=== PATIENT | female | born 1980 | race Hispanic/Latino ===

== ENCOUNTER 2019-01-09 06:24 | Day surgery (SDC) | payer OTHER ==
[2019-01-05 12:07] LABS: Urine Appearance CLEAR; Urine Bilirubin NEGATIVE (NEG); Urine Blood NEGATIVE (NEG); Urine Color YELLOW; Urine Glucose NEGATIVE (NEG); Urine Protein NEGATIVE (NEG); Urine Specific Gravity 1.015 (1.005-1.030); Urine Urobilinogen 0.2 mg/dL (0.2-1.0); Urine pH 6.5 (5.0-7.0)
[2019-01-05 12:10] LABS: Absolute Lymphocytes (CBC) 1.7 K/uL (0.7-4.9); Basophils % 0.8 % (0-1.3); Hematocrit 35.4 % (36.0-45.0); Lymphocytes % 34.8 % (15.3-44.8); MPV 9.6 fL (7.6-11.3); RBC Red Blood Cell Count 4.29 M/uL (3.86-4.86)
[2019-01-05 12:10] LABS: Urine Microscopic Reflex NO UMIC
[2019-01-09 06:42] LABS: Specific Gravity >= 1.030 (1.005-1.030)
[2019-01-09] MEDS ORDERED: NA CHLORIDE 0.9% 1,000 ML ONE (07:11)
[2019-01-09] MEDS ORDERED: PROPOFOL 200 MG/20 ML VIAL IV ONE (07:19)
[2019-01-09] MEDS ORDERED: ONDANSETRON 4 MG/2 ML VIAL ONE (07:19)
[2019-01-09] MEDS ORDERED: MIDAZOLAM HCL 2 MG/2 ML INJ ONE (07:19)
[2019-01-09] MEDS ORDERED: FENTANYL CITR 250 MCG/5 ML ONE (07:19)
[2019-01-09] MEDS ORDERED: LIDOCAINE 2% MPF 5 ML VIAL ONE (07:19)
[2019-01-09] MEDS ORDERED: ROCURONIUM 50 MG/5 ML VIAL IV ONE (07:19)
[2019-01-09] MEDS ORDERED: dexAMETHasone 10 MG/ML VIAL ONE (07:19)
[2019-01-09] MEDS: CEFAZOLIN/SWI 2gm 2 GM/20 ML SYR ONE ×3 (07:37→08:05)
[2019-01-09] MEDS: BUPIVACAINE 0.25% PF 30 ML VIAL ONE ×2 (07:37→08:40)
[2019-01-09] MEDS ORDERED: SCOPOLAMINE HYDROBROMIDE PATCH TD ONE ×2 (07:40→07:45)
[2019-01-09] MEDS ORDERED: EPHEDRINE SULF 50 MG/ML VIAL ONE (08:39)
[2019-01-09] MEDS: Ringers Lactate 1,000 ML IV ONE ×2 (09:06→09:09)
[2019-01-09] MEDS ORDERED: KETOROLAC 30 MG/ML INJ ONE (09:32)
[2019-01-09] MEDS ORDERED: Ringers Lactate 1,000 ML IV ONE (09:58)
[2019-01-09] MEDS: MORPHINE 4 MG/ML SYR ONE ×2 (10:11→10:16)
[2019-01-09] MEDS ORDERED: HYDROMORPHONE HCL 1 MG/ML INJ ONE (10:22)
[2019-01-09] MEDS ORDERED: TRAMADOL HCL 50 MG TAB ONE (11:20)
[2019-01-09 12:18] VITALS: BP 97/43; TEMP 97.1; O2SAT 97
--- NOTE | 2019-01-09 20:32 | OP ---
Date of Procedure: 01/09/2019 Surgeon: Sailaja Casas MD Electrical Test Engineer: Britni Lopez. Preoperative Diagnoses: Heavy menstrual bleeding, dysmenorrhea, left lower quadrant pain. Postoperative Diagnoses: Heavy menstrual bleeding, dysmenorrhea, left lower quadrant pain, left ovar hang endometrioma and endometriosis, and left hydrosalpinx. Anesthesia: General endotracheal. Procedures Performed: 1.Hysteroscopy, endometrial ablation with NovaSure, laparoscopy, pelvic washings, lysis of sigmoid a dhesions to the left ovarian endometrioma on the tube and the lateral wall. 2.Left salpingo-oophorectomy, right salpingectomy, endometriosis excision from the uterosacral ligam ent on the right side, and endometriosis excision of the left lateral wall. Specimens: Right tube, left tube and ovary with endometriosis of the lateral wall and the round liga ment, then right uterosacral ligament endometriosis. Findings: There was an endometrioma fixed mass on the left ovary and tube adhered to the left latera l wall. The round ligament was also attached to the lateral wall and this was all pulled laterally a nd superiorly. The sigmoid colon had adhered to this entire tubo-ovarian complex and to the endometr iosis through the epiploicae and the bowel wall was also very close, obliterating the left lateral gu tter in the pelvis lateral to the sigmoid colon. So all this had to be taken down first in order for me to visualize the entire tube and ovary and then the infundibulopelvic ligament had to be dissecte d by opening the lateral wall and endometriosis had to be excised from the lateral wall of the round ligament to make sure that there was nothing left behind for her to have continued pain. Description Of Procedure: After informed consent was verified, the patient was taken back to OR. Olga conner is a 38-year-old with bleeding, pain, and dysmenorrhea. She was worked up outpatient. No evidence of any atypia or malignancy. She was consented for an ablation for treatment of her bleeding and la paroscopy for the evaluation of her peritoneal cavity for endometriosis. She was completed with chil dbearing so the possibility of removal of tubes was discussed with the patient and she was consented. She was given 2 g of Ancef prior to the procedure, placed in a supine fashion on the operating tabl e. General anesthesia given, placed in a dorsal lithotomy position. Pelvic exam performed. Uterus was found to be anteflexed and mobile. There was a left adnexal mass that was about 4 cm, fixed and immobile, possibly a fibroid versus a pelvic mass stuck by the side. The patient was placed in dorsa l lithotomy, positioning checked. Ancef given. Abdomen, vulva, vagina, and perineum were prepped an d draped in a sterile fashion. Vogel was placed to drain the bladder. Speculum placed to expose the cervix. Anterior lip grasped with 2 Allis clamps. Diagnostic SlimLine hysteroscope with 30 degree lens normal saline used to visualize the uterine cavity. Cavity was directly measured under vision, 8 cm sounding length, 3.5 cm cervical length. Then, the calculated uterine cavity length was 4.5 cm. This was entered into the NovaSure generator. The width was evaluated after opening the NovaSure d evice and after deploying the device into the uterine cavity. The width started at 3.8 cm and adjust ed to 4. So, once this was done, the measurements were all entered into the system and the system wa s enabled after occluding the external os with the occluder. Then, the power setting was at 99 snowden . The time of ablation was 95 seconds. It was completed without any interruption. The patient did well. The NovaSure device was undeployed and pulled out. Thorough irrigation and visualization of t he uterine cavity showed an excellent ablation effect in both cornual ends as well as the entire cavi ty. After irrigating the internal brina, the diagnostic VCare was left in place and the Vogel was att ached to a drainage bag. This area was then draped. A 1 cm infraumbilical incision made with the tanmay pierce using the open laparoscopy technique. Fascia was incised, tagged with 3-0 Vicryl sutures. Per itoneum entered bluntly and S-retractors placed. Also went to inject the local area of skin and the fascia with 0.25% Marcaine, 5 mL was injected here. Then after insufflating the peritoneal cavity, u pper abdominal surface was visualized. The gallbladder appeared to be unremarkable. No significant adhesions in the upper abdominal cavity were seen. The patient was placed in Trendelenburg and perit shukla cavity was evaluated. Findings as dictated above. Endometrioma, bowel adhesions to the latera l wall. So three 5 mm ports were placed in the left and right lower quadrants and suprapubic area un peyman direct vision after injecting with Marcaine at the level of the fascia and the skin without any p roblems. Once these were placed, the peritoneal cavity was surveyed. Both the ureters were visualiz ed from the pelvic brim to the ureteric tunnel. There was no distortion. There was endometriosis in the distal right uterosacral and some erythematous area in the left distal uterosacral ligament and lateral wall. Significant endometriosis was present in the lateral left side between the lateral wal l, round ligament, and the tube. Initially, could not see the endometriosis. The bowel adhesions we re taken down systematically by creating windows and then cutting with sharp dissection or with the L igaSure. Once the epiploica were taken down and the bowel adhesions were seen. So starting at the p elvic brim on the left side, the adhesions were taken down, finding the space between the left latera l wall and the sigmoid colon and this entire sigmoid colon was dropped down, it was hemostatic. Hemo stasis secured with the LigaSure on the epiploicae. Once this was done, the lateral wall peritoneum was incised and dissection was carried all the way to the cephalad portion of the lateral aspect of t he round ligament. Then here, the peritoneum over the round ligament was also taken down to visualiz e the endometriosis that was nodular. There was rupture of the endometrioma and this was collected a nd drained as I was doing this from the ovary. Then, dissection was carried in the plane between the round and the tube and there was a large hydrosalpinx that was visualized at this time and so the en tire mesosalpinx was taken down cleanly, exposing the posterior peritoneum, and no vein in the business office coordinator ior peritoneum and then the utero-ovarian ligament tube were all taken down with the LigaSure, making sure there was no pedicle left. Then, the infundibulopelvic ligament was isolated between the urete r and the IP, taking down the peritoneum to get a good pedicle. Then, the dissection of the tube was carried from the lateral wall all the way cephalad to release it from the lateral wall and the mesos alpinx. Once IP was completely isolated on the pedicle, then this was taken down with the LigaSure. There was some bleeding from the lateral aspect of the uterus where the uteroovarian was taken and t his was cauterized with the help of the bipolar basket tip and there was excellent hemostasis. The s pecimen was detached, placed in the posterior cul-de-sac. The right tube was taken with the help of the LigaSure and this was pulled out through the suprapubic port and then using the 5 camera, the spe cimen was placed in a 10 bag. Thorough irrigation and suction of all the pedicles was done and there was excellent hemostasis and there was excellent peristalsis of the ureters as well. Then, all the trocars were removed under direct vision and after injecting with the Marcaine, the fascial incision at the umbilicus was slightly widened with the help of the nasal speculum and then the entire specime n was pulled out without any problems. Fascial closure here was with the 0 Vicryl tag sutures tied t ogether and then a simple 0 Vicryl stitch in the subcutaneous plane and subcuticular closure with the help of 4-0 Vicryl. The patient tolerated the procedure well. VCare and Vogel were removed. The shannon paredes was recovered from anesthesia and taken to PACU in stable condition. She will follow up with me in 1 week. JORJE/ISAIAS Voice ID: [id number] Report ID: [id number]
== END 2019-01-09 12:31 | disposition home or self-care (01) ==
LOC: OR 06:24
PROVIDERS: ATTEND Obstetrics & Gynecology
PROC: 0UT14ZZ Resection of Left Ovary, Percutaneous Endoscopic Approach (ICD-10-PCS; 2019-01-09)
PROC: 0UT74ZZ Resection of Bilateral Fallopian Tubes, Percutaneous Endoscopic Approach (ICD-10-PCS; 2019-01-09)
PROC: 0UB44ZZ Excision of Uterine Supporting Structure, Percutaneous Endoscopic Approach (ICD-10-PCS; 2019-01-09)
PROC: 0DBW4ZZ Excision of Peritoneum, Percutaneous Endoscopic Approach (ICD-10-PCS; 2019-01-09)
PROC: 0U5B8ZZ Destruction of Endometrium, Via Natural or Artificial Opening Endoscopic (ICD-10-PCS; principal; 2019-01-09 07:30)
DX: N92.1 Excessive and frequent menstruation with irregular cycle (principal); N94.6 Dysmenorrhea, unspecified; N80.1 Endometriosis of ovary; N70.11 Chronic salpingitis; M06.9 Rheumatoid arthritis, unspecified; J45.909 Unspecified asthma, uncomplicated; Z88.6 Allergy status to analgesic agent; Z88.8 Allergy status to other drugs, medicaments and biological substances; Z98.84 Bariatric surgery status; Z80.3 Family history of malignant neoplasm of breast; Z83.3 Family history of diabetes mellitus; Z82.3 Family history of stroke
CPT/HCPCS: 58563; 58661; 58662; 85025; 36415; 86900; 88108; 86850; 81025; 86901; 88305 ×2; 81003; J2704; J2250; J3010; J1100; J1170; J0690; J7030; J2405

== ENCOUNTER 2019-04-22 04:50 | Emergency (ER) | payer OTHER ==
--- OUTSIDE RECORDS SUMMARY | 2019-04-22 04:53 | XMS REPORT ---
:1980 Author Organization [facility] Address [address] [place] [address] Dr. Parekh [address] [place] [id number] Care Team Providers Name Role Phone Unavailable Unavailable Unavailable Problems This patient has no known problems. Allergies, Adverse Reactions, Alerts This patient has no known allergies or adverse reactions. Medications This patient has no known medications.
[2019-04-22 05:40] LABS: Urine Blood NEGATIVE (NEG); Urine Glucose NEGATIVE (NEG); Urine Protein NEGATIVE (NEG); Urine Specific Gravity <1.005 (1.005-1.030); Urine pH 5.5 (5.0-7.0)
[2019-04-22] MEDS ORDERED: ONDANSETRON 4 MG/2 ML VIAL ONE ×2 (05:42→06:51)
[2019-04-22 06:05] LABS: Absolute Lymphocytes (CBC) 1.5 K/uL (0.7-4.9); Basophils % 0.7 % (0-1.3); MPV 9.4 fL (7.6-11.3); RBC Red Blood Cell Count 4.53 M/uL (3.86-4.86)
[2019-04-22 06:13] LABS: ALT/SGPT 26 U/L (12-78); AST/SGOT 15 U/L (15-37); Albumin 4.7 g/dL (3.4-5.0); Alkaline Phosphatase 132 U/L (45-117); BUN Blood Urea Nitrogen 9 mg/dL (7-18); Bicarbonate 25 mmol/L (21-32); Bilirubin Total 0.3 mg/dL (0.2-1.0); Glucose Level 105 mg/dL (74-106); Protein, Total 8.7 g/dL (6.4-8.2); Sodium Level 143 mmol/L (136-145)
[2019-04-22 06:14] LABS: Potassium 2.9 mmol/L (3.5-5.1)
[2019-04-22] MEDS ORDERED: POTASSIUM 25 MEQ EFFERV TAB ONE (06:30)
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
[2019-04-22 07:29] VITALS: TEMP 97.5; O2SAT 100
[2019-04-22 07:33] VITALS: BP 118/82
--- NOTE | 2019-04-22 11:37 | RAD REPORT ---
EXAM DESCRIPTION: RAD - Wrist Left 3 View - 04/22/2019 6:00 am CLINICAL HISTORY: PAIN Pain COMPARISON: None FINDINGS: Left wrist and left hand- multiple projections are submitted No acute fracture or dislocation is evident.
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
--- NOTE | 2019-04-23 10:41 | RAD REPORT ---
EXAM DESCRIPTION: Head C Spine Mpr Wo Con CLINICAL HISTORY: PAIN COMPARISON: None. TECHNIQUE: Axial [address] imaging of the brain. Axial [address] imaging of the cervical spine. Reformatted coronal and sagittal images obtai horacio. This examination was performed according to our departmental dose optimization program, which include s automated exposure control, adjustment of the mA and/or kV according to patient size and/or use of iterative reconstruction technique. FINDINGS: CT Head: The ventricles and extra axial fluid spaces appear normal. No intracranial hemorrhage. No mass or mid line shift. No edema. No evidence of acute large territorial infarction. The cerebellum and vermis ap pear normal. Fourth ventricle is midline. Prepontine cisterns are not effaced. Intraorbital contents appear normal. Clear paranasal sinuses. Mastoid air cells are well aerated bila terally. The skull base is intact. Intact calvarium. Unremarkable scalp soft tissues. CT cervical spine: There is slight reversal of cervical lordosis. Intact odontoid process and lateral masses. No cervica l vertebral body compression fracture or subluxation. Disc space height is maintained. No spinal claudette l or foraminal stenosis. No fracture within the posterior elements. No prevertebral edema. No adenopa thy throughout the neck. Normal appearance of the epiglottis and included larynx. Normal thyroid. Lung apices are clear. No apical pneumothorax. IMPRESSION: 1. No intracranial acute finding. 2. Cervical spine muscle spasm. No acute fracture or subluxation. Electronically signed by: Sue Vázquez DO 04/22/2019 5:58 AM PROFESSOR/NURSE ANESTHETIST Due to temporary technical issues with the PACS/Fluency reporting system, reports are being signed by the in house radiologist as a courtesy to ensure prompt reporting. The interpreting radiologist is f ully responsible for the content of the report.
== END 2019-04-22 07:12 | disposition home or self-care (01) ==
LOC: ER 04:50
DX: S00.83XA Contusion of other part of head, initial encounter (principal); S60.222A Contusion of left hand, initial encounter; S60.212A Contusion of left wrist, initial encounter; K03.81 Cracked tooth; E87.6 Hypokalemia; Y00.XXXA Assault by blunt object, initial encounter; Y93.89 Activity, other specified; Y92.89 Other specified places as the place of occurrence of the external cause; F10.129 Alcohol abuse with intoxication, unspecified; Z88.5 Allergy status to narcotic agent; Z98.82 Breast implant status
CPT/HCPCS: 85025; 36415; 80320; 81003; 80053; 70450; 72125; 70486; 76377; 73130; 73110; 96374; 99284; J2405 ×2

== ENCOUNTER 2022-06-30 21:02 | Emergency (ER) | payer OTHER ==
--- OUTSIDE RECORDS SUMMARY | 2022-06-30 21:06 | XMS REPORT | Continuity of Care Document ---
:1980 Author Organization [facility] t Address [address] [facility] [place] [address] Care Team Providers Name Role Phone Sailaja Casas Attending Clinician Unavailable ZURDO FRENCH Attending Clinician Unavailable ANDREA SILVA Attending Clinician Unavailable JASON MCCURDY Attending Clinician Unavailable Karen Leone Admitting Clinician Unavailable ZURDO FRENCH Admitting Clinician Unavailable EMERGENCY ROOM, EMERGENCY Admitting Clinician Unavailable Payers Payer Name Policy Type Policy Number Effective Date Expiration Date S [facility] [id number] 2015 00:00:00 Problems This patient has no known problems. Allergies, Adverse Reactions, Alerts Allergy Allergy Status Severity Reaction(s) Onset Inactive Treating Comm ents Source Name Type Date Date Clinician codeine DA Active [place] NAUSEA 2021-04 [facility] [place] [facility] hydrocod DA Active [place] N/V 2015-04 [facility] one 05-22 [place] 00:00: d 00 [facility] [place] NO KNOWN Drug Active [facility] ALLERGIE Class ity of S [facility] Medications This patient has no known medications. Procedures This patient has no known procedures. Encounters Start End Encounter Admission Attending Care Care Encounter Source Date/Time Date/Time Type Type Clinicians Facility Department ID 2022-04-08 2022-04-08 Outpatient DOROTHY Conner ANNA [id number] [facility] 09:24:00 09:24:00 Sailaja Manriquez [facility] 2021-08-14 2021-08-14 [facility] [id number] [facility] 10:18:00 14:35:00 [facility] 2021-01-06 2021-01-07 [facility] [id number] [facility] 05:21:00 12:42:00 [facility] 2020-11-18 2020-11-18 [facility] [id number] [facility] 11:40:00 11:40:00 ANDREA [facility] 2020-10-28 2020-10-28 [facility] [id number] [facility] 10:24:00 14:05:00 [facility] 2019-11-07 2019-11-07 Outpatient R [facility] [id number] [facility] 14:40:00 14:40:00 [facility] 2019-10-23 2019-10-23 Outpatient R [facility] [id number] [facility] 14:20:00 14:20:00 [facility] 2007-09-16 2007-09-17 Emergency X [facility] ERT [id number] [facility] 23:27:00 02:10:00 JASON 1 [facility] Results Test Description Test Time Test Comments Results Result Comments Source SURGICAL 2022-04-14 18:26:00 Test Item Value Reference Range Interpretation Comme nts SURGICAL RUN DATE: (test 04/14/22 [facility] - LAB PAGE 1 RUN TIME: 1826 Specimen Inquiry RUN USER: INTERFACE code = PATIENT: LEXY MCCRACKEN ACCT #: [id number] LOC: U #: [id number] AGE/SX: 41/F [facility]: Sailaja Casas MD : 76 BED: DIS: STATUS: [facility] TLOC: SPEC #: [id number] RECD: 04/09/22 STATUS: [facility] #: [id number] SARINA: 04/08/22- [address] [facility] [address]: Sailaja Casas MD ENTERE SP TYPE: SURGICAL OTHR DR: Karen Leone MD ORDERED: 10915/3, 52157, ANATOMIC SPE C, SPECIMEN TRACK COPIES TO: Karen Leone MD [address] [facility] [address] [place] [address] Sailaja Melvin MD [address] [place] [id number] PROCEDURES: 883 05 (04/14/22) [id number] (04/14/22) SPECIMEN TRACK (04/09/22) TISSUES: A. UTERUS - LEFT LA TERAL WALL CUL-DE-SAC - LEFT ANTERIOR CUL-DE-SAC B. LIGAMENT - LEFT BROAD LIGAMENT C. UTERUS - UTERUS WITH CREVIX FINAL DIAGNOSIS A. Soft tissue, left lateral wall, lesion, biopsy:- Fibrous adhesions, mild B. Soft tissue, left anterior cul-de-sac, lesion, biopsy:- Fibrous adhesions, mild C. Soft tiss ue, left broad ligament, lesion, biopsy:- Fibrous adhesions, mild D. Uterus (120 g), hysterectomy:- Cerv ix, mild chronic cervicitis- Endometrium, mildly disordered proliferative pattern- Myometrium, adenomy osis, prominent- Serosa, no morphologic alterations Comment: Negative for atypia/malignancy CONTINUED ON NEXT PAGE RUN DATE: 04/14/22 [facility] Nghia Cadet d - LAB PAGE 2 RUN TIME: 1826 Specimen Inquiry RUN USER: INTERFACE SPEC #: [id number]:[facility]:[id number] PATIENT: LEXY RODRÍGUEZ #[id number] (Continued) GROSS DESCRIPTION A. Left la teral wall. It consists of a single noe tissue fragment measuring 0.5 x 0.2 x 0.2cm. Entirely submitted as A1. B. Left anterior cul-de-sac. It consists of a single noe tissue fragment measuring 0.5 x0.3 x 0.2 cm. Entirely submitted as B1. C. Left broad ligament. It consists of a single noe-pink membranous t issue fragmentmeasuring 1.2 x 0.8 x 0.4 cm. It is sectioned and entirely submitted as C1. D. Uterus. Received is a uterus with cervix that weighs 120 g and measures cornu to cornu5.5 cm, posterior to an terior 5 cm and fundus to cervix 9.5 cm. The cervix measures 4.2 x4 cm and have a cervical os transvers e diameter of 1.3 cm. The uterus is bivalved to reveala noe cervical canal of a 3.8 cm in length. The e ndometrial cavity is irregularly inappearance measuring 3.2 x 0.8 cm and covered by a thin endometriu m of 0.2 cm. The uterinewall has a thickness of 2- 2.3 cm. Sectioning reveals a ill-defined nodular trabec ulatedsurface. There is a cystic cavity filled with serous fluid measuring 0.8 x 0.8 x 0.7 cm. A white whorled nodule in the anterior lower uterine segment measure 1.5 x 1.2 x 1 cm and anodule located in th e posterior wall measuring 0.8 x 0.7 x 0.7 cm. The serosal surface issmooth. D1 posterior cervixD2 anteri or cervix D3-D4 posterior endomyometrium including nodule D5-D6 anterior endomyometriumD7 cystic spac eD8 anterior wall nodule D9 posterior reflection Technical tissue processing and slide preparation perfor [facility] at [facility],[id number] , [place] [address] Unless gross only, the diagnosis is based upon microscopic examination.Immunohistochemistry: This test was developed and its performance characterist icsdetermined by this laboratory. It has not been approved nor does it need approval by the USFDA. Appro priate positive and negative controls are reviewed and judged to be acceptable.This laboratory i s certified under the Clinical Laboratory Improvement Amendments (CLIA-88)as qualified to perform high co mplexity clinical laboratory testing. MICROSCOPIC DESCRIPTION Microscopic examination is performed on all specimens and the findings areincorporated into the final diagnosis. Please see diagnosis for findings. CONTINUED ON NEX T PAGE RUN DATE: 04/14/22 [facility] PAGE 3 RUN TIME: 1826 Specimen Inquiry RUN USER: INTERFACE SPEC #: [id number]:[facility]:[id number] PATIENT: LEXY RODRÍGUEZ #[id number] (Continued) Signed SIGNATURE ON Cj Barrera 04/14/22 1826 END OF REPORT CBC W/AUTO [id number] 10:06:00 Test Item Value Reference Range Interpretation Comments WHITE BLOOD CELL (test code = 3.6 K/mm3 3.5-11.0 N WBC) RED BLOOD CELL (test code = 4.62 M/mm3 4.70-6.10 L RBC) HEMOGLOBIN (test code = HGB) 13.9 G/DL 10.4-14.9 N HEMATOCRIT (test code = HCT) 42.3 % 31.5-44.1 N MEAN CELL VOLUME (test code = 91.6 Fl 84.5-98.6 N MCV) MEAN CELL HGB (test code = MCH) 30.1 pg 27.0-34.2 N MEAN CELL HGB CONCETRATION 32.9 G/DL 31.5-34.0 N (test code = MCHC) RED CELL DISTRIBUTION WIDTH 12.2 SD 11.5-14.5 N (test code = RDW) PLATELET COUNT (test code = 276 K/mm3 150-450 N PLT) MEAN PLATELET VOLUME (test code 10.20 fL 7.0-10.5 N = MPV) NEUTROPHIL % (test code = NT%) 47.7 % 40-76 N IMMATURE GRANULOCYTE % (test 0.3 % 0.0-5.0 N code = IG%) LYMPHOCYTE % (test code = LY%) 42.3 % 20.5-51.1 N MONOCYTE % (test code = MO%) 5.8 % 1.7-9.3 N EOSINOPHIL % (test code = EO%) 3.1 % 0.0-6.0 N BASOPHIL % (test code = BA%) 0.8 % 0.0-2.0 N NUCLEATED RBC % (test code = 0.0 /100WBC% 0.0-1.0 N NRBC%) NEUTROPHIL # (test code = NT#) 1.7 K/mm3 1.8-7.6 L IMMATURE GRANULOCYTE # (test 0.01 x10 3/uL 0.00-0.03 N code = IG#) LYMPHOCYTE # (test code = LY#) 1.5 K/mm3 0.6-3.2 N MONOCYTE # (test code = MO#) 0.2 K/mm3 0.3-1.1 L EOSINOPHIL # (test code = EO#) 0.1 K/mm3 0.0-0.4 N BASOPHIL # (test code = BA#) 0.0 K/mm3 0.0-0.1 N NUCLEATED RBC # (test code = 0.0 K/mm3 0.0-0.1 N NRBC#) MANUAL DIFF REQUIRED (test code NO DIFF/SCN CRITERIA = MDIFF) BASIC METABOLIC [id number] 10:04:00 Test Item Value Reference Range Interpretation Comments SODIUM (test code 138 mmol/L 134-147 N = NA) POTASSIUM (test 3.6 mmol/L 3.4-5.0 N code = K) CHLORIDE (test 102 mmol/L 100-108 N code = CL) CARBON DIOXIDE 33 mmol/L 21-32 H (test code = CO2) ANION GAP (test 3.0 GAP calc 4.0-15.0 L code = GAP) GLUCOSE (test code 92 MG/DL 70-110 N = GLU) BLOOD UREA 16 MG/DL 7-18 N NITROGEN (test code = BUN) GLOMERULAR >=60 max >60 The Glomerular FILTRATION RATE estimate estGFR Filtratio n Rate is a (test code = GFR) calculated parameterbased on serum Creatinin e, patient age and sex. GFR valuesless than 60 mL/min/1.73 square meters are abigail cative ofChronic Kidne y Disease. Values less than 15 mL/min/1.73squa re meters indicate Kidney failure. The calculation for GFR is based on the CK D-EPI (2020) calculat ion. This formulais race indifferent and is the recommended formula for GFR by the National Kidney Foundation for Adults.The GFR will not calculate i f the sex is unknown or if thepatient's ag e is <18 years. CREATININE (test 0.5 MG/DL 0.6-1.0 L code = CREAT) CALCIUM (test code 9.0 MG/DL 8.5-10.1 N = CA) - XR CHEST 1 [id number] 10:03:00 [facility] : 1980 Sex: F Name: LEXY RODRÍGUEZ [facility] : 1980 Age/S: 41 / F [id number] Unit #: [id number] Loc: [place] [address] Phys: Saman Hauser MD Acct: [id number] Dis Date: Status: PRE AKC PHONE #: [phone] Exam Date: 04/07/2022 0958 FAX #: Reason: PRE OP EXAMS: CPT: [id number] XR CHEST 1 V 22396 Fluoro Time: DAP (Gy m2): Air Kerma (mGy): Location Code: S17 EXAMINATION: - XR CHEST 1 V CLINICAL INDICATION: Female, 41 years year old with preoperative evaluation. COMPARISON: None. FINDINGS: Single view(s) of the chest submitted. Support Devices: None. Heart: Cardiac silhouette is normal in size. Mediastinum: Mediastinal contours are normal. Lungs: Pulmonary vessels are normal in size. Lungs are well aerated and clear. Pleura: No pleural effusion is identified. No pneumothorax is present. Bones: Visualized skeleton is intact. IMPRESSION: No acute cardiopulmonary disease. at 1003 Reported and signed by: Rio Ayala M.D. CC: Karen Leone MD; Sailaja Casas MD; Saman Hauser MD PAGE 1 Signed Report Name: LEXY RODRÍGUEZ [place] : 1980 Age/S: 41 / F [address] Unit #: [id number] Loc: [place] [address] [id number] Dis Date: Status: PRE SDC PHONE #: [phone] Exam Date: 04/07/2022 0958 FAX #:Reason: PRE OP EXAMS: CPT: [id number] XR CHEST 1 V 17522 Fluoro Time: DAP (Gy m2): Air Kerma (mGy): (Continued) Technologist: Demetri Dawn, RT,(R),(CT) Trnscb Date/Time: 04/07/2022 (1003) [email or web address] Orig Print D/T: S: 04/07/2022 (1007) PAGE 2 Signed ReportCOVID 19 INHOUSE [id number] 09:59:00 Test Item Value Reference Range Interpretation Comments COVID 19 INHOUSE AG NEGATIVE Negative Per manu facturer, (test code = negative result s should [id number]) be treated aspr esumptive and, if inconsi stent with clinical signs andsymptoms or necessary for patient man agement, should betested with an alternative mol ecular assay. Negative resultsdo not preclude SA RS-CoV-2 infection and s hould not be usedas the s ole basis for patient man agement decisions. Nega tive results should be considered in t he context of apatient's r ecent exposures, hist ory, presence of cli nicalsigns and symptoms co nsistent with COVID-19. URINALYSIS [id number] 09:43:00 Test Item Value Reference Range Interpretation Comments UA GLUCOSE DIPSTICK (test NEGATIVE mg/dL NEG code = DGLUU) UA BILIRUBIN DIPSTICK (test NEGATIVE mg/dL NEG code = BILU) UA KETONE DIPSTICK (test NEGATIVE mg/dL NEG code = KETU) UA SPECIFIC GRAVITY (test 1.010 SG 1.005-1.030 code = SGU) UA BLOOD DIPSTICK (test NEGATIVE mg/DL NEG code = KIRK) UA PH DIPSTICK (test code = 7.5 pH UNITS 5.0-7.0 A ELIZABETH) UA PROTEIN DIPSTICK (test NEGATIVE mg/dL NEG code = PROU) UA UROBILINIOGEN DIPSTICK 4.0 mg/dL <2.0 A (test code = URO) UA NITRITE DIPSTICK (test NEGATIVE SCREEN NEG code = RINA) UA LEUKOCYTE ESTERASE NEGATIVE Leuk/mcL NEGATIVE DIPSTICK (test code = LEUU) Urine Specimen Type: Clean Catch
[2022-06-30] MEDS ORDERED: KETOROLAC 30 MG/ML INJ ONE (22:16)
[2022-06-30] MEDS ORDERED: ONDANSETRON 4 MG/2 ML VIAL ONE (22:16)
[2022-06-30] MEDS ORDERED: NA CHLORIDE 0.9% 1,000 ML ONE (22:16)
[2022-06-30 22:52] LABS: Hematocrit 36.4 % (36.0-45.0); Lymphocytes % 27.3 % (15.3-44.8); MCV 91.3 fL (80-100); MPV 8.7 fL (7.6-11.3); RBC Red Blood Cell Count 3.98 M/uL (3.86-4.86)
[2022-06-30 23:03] LABS: Albumin 3.8 g/dL (3.4-5.0); Bilirubin Total 0.4 mg/dL (0.2-1.0); Potassium 3.9 mEq/L (3.5-5.1); Protein, Total 7.2 g/dL (6.4-8.2)
[2022-06-30 23:46] LABS: Renal Epithelial <5 /HPF (None Seen); Specific Gravity 1.012 (1.005-1.030); Urine Bacteria <20 /HPF (<20); Urine Bilirubin NEGATIVE (Negative); Urine Blood Negative (Negative); Urine Clarity Turbid (Clear); Urine Color Yellow (Yellow); Urine Glucose NEGATIVE (Negative); Urine Protein NEGATIVE (Negative); Urine Urobilinogen Normal (Normal)
[2022-07-01] MEDS ORDERED: CEFTRIAXONE 1000 MG/VIAL ONE (00:16)
--- NOTE | 2022-07-01 08:38 | EDPHYS ---
Physician Documentation [facility] Name: Tanesha Ren Age: 41 yrs Sex: Female : 1980 Arrival Date: 06/30/2022 Time: 21:08 Bed 11 Private MD: Jose Dorsey T ED Physician Benjamin Dumont HPI: 06/30 22:00 This 41 yrs old Female presents to ER via Ambulatory with complaints of cp Abdominal Pain, Back Pain, Urinary Problem. 22:00 The patient presents with abdominal pain right lower quadrant. cp 22:00 Onset: The symptoms/episode began/occurred today. The symptoms radiate to right back. cp Associated signs and symptoms: Pertinent positives: dysuria, Pertinent negatives: constipation, diarrhea, fever, vaginal discharge, vomiting. Patient reports having UTI symptoms that started yesterday. Was seen at doctor's office earlier today and diagnosed with uti and prescribed Macrobid. Pain to right lower abdomen becoming worse. 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 - Social history:: Smoking status: Patient denies any tobacco usage or history of. Patient uses alcohol, occasionally. ROS: 22:05 Eyes: Negative for injury, pain, redness, and discharge. cp 22:05 Constitutional: Negative for body aches, chills, fever, poor PO intake. 22:05 ENT: Negative for drainage from ear(s), ear pain, sore throat, difficulty swallowing, difficulty handling secretions. 22:05 Cardiovascular: Negative for chest pain, edema, palpitations. 22:05 Respiratory: Negative for cough, shortness of breath, wheezing. 22:05 Abdomen/GI: Positive for abdominal pain, nausea, of the posterior aspect of right lateral abdomen, anterior aspect of right lateral abdomen and right lower quadrant, Negative for vomiting, diarrhea, constipation. 22:05 : Positive for urinary symptoms, Negative for vaginal bleeding, vaginal discharge. 22:05 Neuro: Negative for altered mental status, dizziness, weakness. 22:05 All other systems are negative. Exam: 22:05 Head/Face: Normocephalic, atraumatic. cp 22:05 Constitutional: The patient appears in no acute distress, alert, awake, non-toxic, well developed, well nourished, uncomfortable. 22:05 Eyes: Periorbital structures: appear normal, Conjunctiva: normal, no exudate, no injection, Sclera: no appreciated abnormality, Lids and lashes: appear normal, bilaterally. 22:05 ENT: External ear(s): are unremarkable, Nose: is normal, Mouth: Lips: moist, Oral mucosa: moist, Posterior pharynx: Airway: no evidence of obstruction, patent. 22:05 Chest/axilla: Inspection: normal. 22:05 Cardiovascular: Rate: normal, Rhythm: regular. 22:05 Respiratory: the patient does not display signs of respiratory distress, Respirations: normal, no use of accessory muscles, no retractions, labored breathing, is not present, Breath sounds: are clear throughout, no decreased breath sounds, no stridor, no wheezing. 22:05 Abdomen/GI: Inspection: abdomen appears normal, Bowel sounds: active, all quadrants, Palpation: soft, in all quadrants, moderate abdominal tenderness, in the right lower quadrant. 22:05 Back: CVA tenderness, is absent. 22:05 Skin: no rash present. 22:05 Neuro: Orientation: to person, place \T\ time. Mentation: is normal. Vital Signs: 21:46 BP 126 / 88; Pulse 85; Resp 17 S; Temp 98.1(O); Pulse Ox 99% on R/A; Weight 67.59 kg lg3 (R); Height 5 ft. 4 in. (R); Pain 7/10; 07/01 01:33 BP 118 / 82; Pulse 69; Resp 18; Pulse Ox 100% on R/A; oe 06/30 21:46 Body Mass Index 25.58 (67.59 kg, 162.56 cm) lg3 06/30 21:46 Pain Scale: Adult lg3 MDM: 06/30 22:17 Patient medically screened. cp 07/01 01:19 Data reviewed: vital signs, nurses notes, lab test result(s), radiologic studies, CT cp scan. 01:19 Differential diagnosis: appendicitis, Pyelonephritis, Ureterolithiasis, urinary tract cp infection. Consideration of Admission/Observation Escalation of care including admission/observation considered. Counseling: I had a detailed discussion with the patient and/or guardian regarding: the historical points, exam findings, and any diagnostic results supporting the discharge/admit diagnosis, lab results, radiology results, to return to the emergency department if symptoms worsen or persist or if there are any questions or concerns that arise at home. Response to treatment: the patient's symptoms have markedly improved after treatment, and as a result, I will discharge patient. Special discussion: Based on the patient's Hx, exam, and Dx evaluation, there is no indication for emergent surgery or inpatient Tx. It is understood by the patient/guardian that if the Sx's persist or worsen they need to return immediately for re-evaluation. 06/30 21:55 Order name: CT Abd/Pelvis - IV Contrast Only cp 06/30 20:55 Order name: IV Saline Lock cp 06/30 20:55 Order name: Labs collected and sent 07/01 01:08 Order name: PO challenge cp Administered Medications: 06/30 22:28 Drug: TORadol - Ketorolac IVP 15 mg Route: IVP; Site: right antecubital; 07/01 00:18 Follow up: Response: No adverse reaction; Marked relief of symptoms 06/30 22:28 Drug: Ondansetron IVP 4 mg Route: IVP; Site: right antecubital; 07/01 00:18 Follow up: Response: No adverse reaction; Marked relief of symptoms 06/30 22:28 Drug: NS 0.9% IV 1000 ml Route: IV; Rate: 1 bolus; Site: right antecubital; 07/01 00:17 Follow up: IV Status: Completed infusion; IV Intake: 1000ml 00:17 Drug: Rocephin IV 1 grams Route: IV; Rate: calculated rate; Site: right antecubital; Disposition: 01:54 Co-signature as Attending Physician, Benjamin Dumont MD I reviewed the patient's care rn provided by the Advanced Practice Provider and agree with the diagnosis and treatment plan. Disposition Summary: 07/01/22 01:19 Discharge Ordered Location: Home cp Problem: new cp Symptoms: have improved cp Condition: Stable cp Diagnosis - UTI/ Urinary tract infection, site not specified cp - Abdominal pain, unspecified cp - Low back pain cp Followup: cp - With: Private Physician - When: 2 - 3 days - Reason: Recheck today's complaints Discharge Instructions: - Discharge Summary Sheet cp - Abdominal Pain, Adult cp - Acute Back Pain, Adult cp - Urinary Tract Infection, Adult cp Forms: - Medication Reconciliation Form cp - Thank You Letter cp - Antibiotic Education cp - Prescription Opioid Use cp Prescriptions: - Pyridium 200 mg Oral Tablet - take 1 tablet by ORAL route every 8 hours for 2 days; 6 tablet; Refills: 0, cp Product Selection Permitted - Zofran 4 mg Oral Tablet - take 1 tablet by ORAL route every 12 hours As needed; 20 tablet; Refills: 0, cp Product Selection Permitted - Diclofenac Sodium 75 mg Oral Tablet Sustained Release - take 1 tablet by ORAL route 2 times per day; 30 tablet; Refills: 0, Product cp Selection Permitted - cefpodoxime 200 mg Oral Tablet - take 1 tablet by ORAL route every 12 hours for 7 days with food; 14 tablet; cp Refills: 0, Product Selection Permitted Signatures: Dispatcher [employer] EDPeg Shrestha RN RN kl Nieto, Roman, MD MD rn Page, Corey, PA PA Yenny James RN RN lg3 Corrections: (The following items were deleted from the chart) 07/02 00:07/01 22:05 Constitutional: Negative for body aches, chills, fever, poor PO intake, cp cp 07/02 00:07/01 22:05 Cardiovascular: Negative for chest pain, edema, palpitations, cp cp 07/02 00:07/01 22:05 Respiratory: Negative for cough, shortness of breath, wheezing, cp cp 07/02 00:07/01 22:05 Abdomen/GI: Positive for abdominal pain, nausea, of the posterior aspect of cp right lateral abdomen, anterior aspect of right lateral abdomen and right lower quadrant, Negative for vomiting, diarrhea, constipation, cp 07/02 00:07/01 22:05 Eyes: Negative for injury, pain, redness, and discharge, cp cp 07/02 00:07/01 22:05 ENT: Negative for drainage from ear(s), ear pain, sore throat, difficulty cp swallowing, difficulty handling secretions, cp 07/02 00:07/01 22:05 : Positive for urinary symptoms, Negative for vaginal bleeding, vaginal cp discharge, cp 07/02 01:07/01 22:05 Neuro: Negative for altered mental status, dizziness, weakness, cp cp 07/02 00:07/01 22:05 All other systems are negative, cp cp
--- NOTE | 2022-07-01 08:38 | ER ---
Nurse's Notes [facility] Name: Tanesha Ren Age: 41 yrs Sex: Female : 1980 Arrival Date: 06/30/2022 Time: 21:08 Bed 11 Private MD: Jose Dorsey T Diagnosis: UTI/ Urinary tract infection, site not specified;Abdominal pain, unspecified;Low back pain Presentation: 06/30 21:46 Chief complaint: Patient states: UTI symptoms starting yesterday. took AZO's tylenol. lg3 went to today and had urine tested. antibiotics started today. pain increasingly getting worse throughout the day. right lower abdominal pain radiating to right flank. Coronavirus screen: Client denies travel out of the [place] in the last 14 days. At this time, the client does not indicate any symptoms associated with coronavirus-19. Ebola Screen: No symptoms or risks identified at this time. Initial Sepsis Screen: Does the patient meet any 2 criteria? No. Patient's initial sepsis screen is negative. Does the patient have a suspected source of infection? No. Patient's initial sepsis screen is negative. Risk Assessment: Do you want to hurt yourself or someone else? Patient reports no desire to harm self or others. Onset of symptoms was June 29, 2022. 21:46 Method Of Arrival: Ambulatory 3 21:46 Acuity: WENDY 3 lg3 Triage Assessment: 21:49 General: Appears in no apparent distress. uncomfortable, Behavior is calm, cooperative. lg3 Pain: Complains of pain in right lower quadrant Pain radiates to right flank. EENT: No deficits noted. No signs and/or symptoms were reported regarding the EENT system. Neuro: No deficits noted. Burnette Agitation-Sedation Scale (RASS): 0 - Alert and Calm Level of Consciousness is awake, alert, obeys commands, Oriented to person, place, time, situation. Cardiovascular: No deficits noted. Denies chest pain, shortness of breath. Respiratory: No deficits noted. Airway is patent Respiratory effort is even, unlabored, Respiratory pattern is regular, symmetrical. GI: No deficits noted. Abdomen is flat, non-distended. : Reports burning with urination, cramping, urgency, urinary frequency. Derm: No deficits noted. No signs and/or symptoms reported regarding the dermatologic system. Skin is intact, is healthy with good turgor, Skin is dry, Skin is normal, Skin temperature is warm. Musculoskeletal: No deficits noted. No signs and/or symptoms reported regarding the musculoskeletal system. Circulation, motion, and sensation intact. Range of motion: intact in all extremities. 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 - Social history:: Smoking status: Patient denies any tobacco usage or history of. Patient uses alcohol, occasionally. Screenin:29 [facility] ED Fall Risk Assessment (Adult) History of falling in the last 3 months, kl including since admission No falls in past 3 months (0 pts) Confusion or Disorientation No (0 pts) Intoxicated or Sedated No (0 pts) Impaired Gait No (0 pts) Mobility Assist Device Used No (0 pt) Altered Elimination No (0 pt) Score/Fall Risk Level 0 - 2 = Low Risk. Abuse screen: Denies threats or abuse. Nutritional screening: No deficits noted. Tuberculosis screening: No symptoms or risk factors identified. Assessment: 22:29 General: Appears uncomfortable, well groomed, well developed, Behavior is calm, kl cooperative. Pain: Complains of pain in back and right flank and abdomen and right lower quadrant Pain currently is 8 out of 10 on a pain scale. Neuro: No deficits noted. Cardiovascular: No deficits noted. Respiratory: No deficits noted. GI: Bowel sounds present X 4 quads. Abd is soft. : Reports burning with urination. 07/01 00:18 Reassessment: Patient appears in no apparent distress at this time. Patient is alert, kl oriented x 3, equal unlabored respirations, skin warm/dry/pink. Patient states feeling better. Patient states symptoms have improved. 01:34 Reassessment: Patient appears in no apparent distress at this time. Patient is alert, kl oriented x 3, equal unlabored respirations, skin warm/dry/pink. Patient states feeling better. Patient states symptoms have improved. Vital Signs: 06/30 21:46 BP 126 / 88; Pulse 85; Resp 17 S; Temp 98.1(O); Pulse Ox 99% on R/A; Weight 67.59 kg lg3 (R); Height 5 ft. 4 in. (R); Pain 7/10; 07/01 01:33 BP 118 / 82; Pulse 69; Resp 18; Pulse Ox 100% on R/A; oe 06/30 21:46 Body Mass Index 25.58 (67.59 kg, 162.56 cm) lg3 03 21:46 Pain Scale: Adult lg3 ED Course: 06/30 21:08 Patient arrived in ED. es 21:09 Jose Dorsey MD is Private Physician. es 21:09 [facility] cp 21:10 Benjamin Dumont MD is Attending Physician. cp 21:49 Triage completed. lg3 21:49 Arm band placed on left wrist. lg3 22:28 Inserted saline lock: 20 gauge in right antecubital area, using aseptic technique. kl Blood collected. 07/01 01:34 Patient has correct armband on for positive identification. kl 01:34 No provider procedures requiring assistance completed. IV discontinued, intact, kl bleeding controlled, No redness/swelling at site. Pressure dressing applied. Administered Medications: 06/30 22:28 Drug: TORadol - Ketorolac IVP 15 mg Route: IVP; Site: right antecubital; 07/01 00:18 Follow up: Response: No adverse reaction; Marked relief of symptoms 06/30 22:28 Drug: Ondansetron IVP 4 mg Route: IVP; Site: right antecubital; 07/01 00:18 Follow up: Response: No adverse reaction; Marked relief of symptoms 06/30 22:28 Drug: NS 0.9% IV 1000 ml Route: IV; Rate: 1 bolus; Site: right antecubital; 07/01 00:17 Follow up: IV Status: Completed infusion; IV Intake: 1000ml kl 00:17 Drug: Rocephin IV 1 grams Route: IV; Rate: calculated rate; Site: right antecubital; Medication: 01:34 VIS not applicable for this client. kl Intake: 00:17 IV: 1000ml; Total: 1000ml. kl Outcome: 01:19 Discharge ordered by . cp 01:34 Discharged to home ambulatory, with family. kl 01:34 Condition: stable 01:34 Condition: improved 01:34 Discharge instructions given to patient, family, Instructed on discharge instructions, follow up and referral plans. medication usage, Demonstrated understanding of instructions, follow-up care, medications, Prescriptions given X 4. 01:35 Patient left the ED. Signatures: Peg Nugent, RN RN Geno Kramer Corey, PA PA cp Espinosa, Orlando oe Gibson, Lacie, RN RN lg3
[2022-07-01 11:48] VITALS: TEMP 98.1
[2022-07-01 11:49] VITALS: BP 118/82; O2SAT 100
--- NOTE | 2022-07-01 13:58 | RAD REPORT ---
EXAM DESCRIPTION: CT - Abdomen Pelvis W Contrast - 07/01/2022 5:52 am CLINICAL HISTORY: The patient is 41 years old and is Female; RLQ/ FLANK PAIN TECHNIQUE: Axial computed tomography images of the abdomen and pelvis with intravenous contrast. S agittal and coronal reformatted images were created and reviewed. This CT exam was performed using one or more of the following dose reduction techniques: automated exposure control, adjustment of t he mA and/or kV according to patient size, and/or use of iterative reconstruction technique. COMPARISON: No relevant prior studies available. FINDINGS: Lung bases: Unremarkable. No mass. No consolidation. ABDOMEN: Liver: Unremarkable. No mass. Gallbladder and bile ducts: Gallbladder is surgically absent. Dilated common bile duct which is likely due to cholecystectomy. Pancreas: Unremarkable. No mass. No ductal dilation. Spleen: 1.4 cm cyst in the spleen. Adrenals: Unremarkable. No mass. Kidneys and ureters: Unremarkable. No solid mass. No hydronephrosis. Stomach and bowel: Postsurgical changes in the stomach and small bowel. No obstruction. No mucosal thickening. PELVIS: Appendix: The appendix is normal. Bladder: Unremarkable. Reproductive: Suggestion of a 2 cm corpus luteum cyst in the right ovary/adnexa. ABDOMEN and PELVIS: Intraperitoneal space: Unremarkable. No free air. No significant fluid collection. Bones/joints: No acute fracture. No dislocation. Soft tissues: Partially visualized bilateral breast implants. Vasculature: Unremarkable. No abdominal aortic aneurysm. Lymph nodes: Unremarkable. No enlarged lymph nodes. IMPRESSION: 1. No acute finding in the abdomen/pelvis. 2. Suggestion of a 2 cm corpus luteum cyst in the right ovary/adnexa. 3. The appendix is normal. 4. No evidence of obstructing stone. 5. Additional non-emergent findings as above. Electronically signed by: Chalo Tanner MD 07/01/2022 12:59 AM CDT Due to temporary technical issues with the PACS/Fluency reporting system, reports are being signed by the in house radiologists without review as a courtesy to insure prompt reporting. The interpreting radiologist is fully responsible for the content of the report.
== END 2022-07-01 01:35 | disposition home or self-care (01) ==
LOC: ER 21:02
DX: N39.0 Urinary tract infection, site not specified (principal); R10.9 Unspecified abdominal pain; M54.50 Low back pain, unspecified
CPT/HCPCS: 87088; 85025; 81001; 87086; 36415; 83690; 80053; 74177; Q9967; J2405; J7030